=== PATIENT | female | born 1955 | race Caucasian/White ===

== ENCOUNTER 2020-05-03 15:38 | Emergency (ER) | payer SELFPAY ==
[~2020-05-03] VITALS: Ht 160 cm; Wt 65.8 kg
[2020-05-03 15:40] VITALS: Ht 160 cm; Wt 65.8 kg
[2020-05-03 17:52] LABS: PLATELET COUNT 168 x10^3mcL (179-408)
[2020-05-03 17:53] LABS: BASOPHIL % 3.8 % (0.2-1.3)
[2020-05-03 18:00] LABS: rbc morphology (normal/abnorm) NORMAL (NORMAL)
[2020-05-03 18:21] LABS: CALCIUM 7.9 mg/dL (8.5-10.1); CARBON DIOXIDE 25.7 mmol/L (21-32); CHLORIDE SERUM 105 mmol/L (98-107); CREATININE SERUM 0.7 mg/dL (0.6-1.0); GFR1 > 60 mL/min; GLUCOSE SERUM 140 mg/dL (74-106); POTASSIUM SERUM 3.8 mmol/L (3.5-5.1); SODIUM SERUM 139 mmol/L (136-145)
[2020-05-03 18:25] LABS: ALBUMIN 3.4 g/dL (3.4-5.0); ALKALINE PHOSPHATASE 112 U/L (46-116); ALT/SGPT 56 U/L (14-59); AST/SGOT 46 U/L (15-37); BILIRUBIN TOTAL 0.32 mg/dL (0.20-1.00); LACTIC DEHYDROGENASE (LDH) 194 U/L (100-190); TOTAL PROTEIN, SERUM 7.7 g/dL (6.4-8.2)
[2020-05-03 18:48] LABS: C REACTIVE PROTEIN < 2.0 mg/dL (<=0.9)
[2020-05-03 19:39] VITALS: BP 118/79
== END 2020-05-03 19:39 | disposition home or self-care (01) ==
LOC: ED 15:38
PROVIDERS: Student in an Organized Health Care Education/Training Program
DX: J44.1 Chronic obstructive pulmonary disease with (acute) exacerbation (principal); R60.9 Edema, unspecified; I10 Essential (primary) hypertension; F17.210 Nicotine dependence, cigarettes, uncomplicated
CPT/HCPCS: 83880; 85378; 99406; J2920